=== PATIENT | female | born 1980 | race Caucasian/White ===

== ENCOUNTER 2016-10-14 05:32 | Emergency (ER) | payer OTHER ==
[~2016-10-14] VITALS: Ht 162.6 cm; Wt 72.6 kg
[2016-10-14 05:47] VITALS: BP_SYST 131
[2016-10-14] MEDS ORDERED: LIDOCAINE VISCOUS 2%, 15 ML UDC MM ONE (06:00)
[2016-10-14] MEDS ORDERED: KETOROLAC TROMETHAMINE 60 MG/2 ML VIAL IM ONE (07:30)
[2016-10-14 08:03] VITALS: BP_SYST 111
== END 2016-10-14 08:03 | disposition home or self-care (01) ==
LOC: SED 05:32
DX: R07.0 Pain in throat (principal); R03.0 Elevated blood-pressure reading, without diagnosis of hypertension; Z91.013 Allergy to seafood
CPT/HCPCS: 70490; 71250; 81025; 96372; 99284; J1885; J2001

== ENCOUNTER 2023-07-30 10:11 | Emergency (ER) | payer OTHER ==
[~2023-07-30] VITALS: Ht 162.6 cm; Wt 72.6 kg
[2023-07-30 10:21] VITALS: BP_SYST 155; PULSE 111; RESP 18; TEMP 98.3; O2SAT 100
[2023-07-30] MEDS: HYDROcodone/ACETAMIN 10-325 MG TAB PO ONE (10:35)
[2023-07-30] MEDS ORDERED: DIPHTH,PERTUSS(ACELL),TET VAC 0.5 ML VIAL (Tdap) I.M. ONE (11:00)
[2023-07-30] MEDS ORDERED: CEPH-548 PO (11:08)
[2023-07-30 11:25] VITALS: BP_SYST 144; PULSE 83; RESP 18; TEMP 98.2; O2SAT 99
== END 2023-07-30 11:30 | disposition home or self-care (01) ==
LOC: SED 10:11
DX: S61.011A Laceration without foreign body of right thumb without damage to nail, initial encounter (principal); Z91.013 Allergy to seafood; Z79.899 Other long term (current) drug therapy; W26.0XXA Contact with knife, initial encounter; Y93.89 Activity, other specified; Y92.89 Other specified places as the place of occurrence of the external cause; Y99.8 Other external cause status
CPT/HCPCS: 90715; 99283

== ENCOUNTER 2023-08-15 12:30 | Emergency (ER) | payer OTHER ==
[~2023-08-15] VITALS: Ht 160 cm; Wt 77.1 kg
[~2023-08-15 12:30] MED LIST: CEPH-548 PO
[2023-08-15 12:36] VITALS: BP_SYST 138; PULSE 89; RESP 16; TEMP 97.8; O2SAT 99
[2023-08-15] MEDS: LIDOCAINE JELLY 5 ML TUBE MM ONE (13:10)
[2023-08-15] MEDS ORDERED: DOXY-244 PO (13:49)
[2023-08-15] MEDS: HYDROcodone/ACETAMIN 5-325 MG TAB (NORCO/ VICODIN) PO ONE (14:00)
[2023-08-15 14:01] VITALS: BP_SYST 138; PULSE 89; RESP 16; TEMP 97.8; O2SAT 99
== END 2023-08-15 14:02 | disposition home or self-care (01) ==
LOC: SED 12:30
DX: S61.011D Laceration without foreign body of right thumb without damage to nail, subsequent encounter (principal); Z91.013 Allergy to seafood; W45.8XXD Other foreign body or object entering through skin, subsequent encounter
CPT/HCPCS: 99283